=== PATIENT | female | born 1950 | race Caucasian/White ===

== ENCOUNTER → 2017-06-07 | Outpatient (CLI) | payer OTHER | END | disposition home or self-care (01) | LOC: PCVCCLINIC 12:00 | PROVIDERS: ATTEND Internal Medicine | DX: I10 Essential (primary) hypertension (principal); R93.1 Abnormal findings on diagnostic imaging of heart and coronary circulation; I51.7 Cardiomegaly; E78.5 Hyperlipidemia, unspecified; Z88.6 Allergy status to analgesic agent; Z79.82 Long term (current) use of aspirin; Z90.710 Acquired absence of both cervix and uterus | CPT/HCPCS: 80061; 93005; G0463 ==

== ENCOUNTER → 2017-07-10 | Outpatient (CLI) | payer OTHER | LOC: PCVCCLINIC 11:06 | PROVIDERS: ATTEND Internal Medicine | DX: I10 Essential (primary) hypertension (principal); R00.2 Palpitations; E78.5 Hyperlipidemia, unspecified; Z88.8 Allergy status to other drugs, medicaments and biological substances; Z79.82 Long term (current) use of aspirin; Z79.899 Other long term (current) drug therapy; Z90.710 Acquired absence of both cervix and uterus | CPT/HCPCS: G0463 ==

== ENCOUNTER → 2017-07-31 | Outpatient (CLI) | payer OTHER ==
[~2017-07-31] MED LIST: REGADENOSON 0.4 MG/5 ML DISP.SYRIN. IV ONE
--- NOTE | 2017-07-31 12:40 | PCVCIMAG ---
APPROVED REPORT Exam: Nuclear Stress Test Indication: Abn EKG, Palpitations, Afib Patient Location: Out Patient Stress Nurse: Sandy Ryan RN, PEDRO Kc Tech:Roger Frias NMTCB Ht: 5 ft 5 in Wt: 150 lbs BSA: 1.75 m2 HR: 86 bpm BP: 137/88 mmHg BMI: 24.9 Rhythm: NSR Medical History Medical History: Age, Hyperlipidemia, Afib, Medications: Toprol XL, Eliquis Allergies: ASA Pretest Chest Pain Characteristics: No chest pain Exercise History: Physically active Meds Held (24 hrs): Toprol XL NM EXAM: Myocardial Perfusion REST/STRESS Imaging Protocol: Rest Tc-99m/Stress Tc-99m 1 day Resting Data Rest SPECT myocardial perfusion imaging was performed in supine position 45 minutes following the intravenous injection of 8.8 mCi of Tc-99m Sestamibi. Time of rest injection: 804 Date: 07/31/2017 Pharmacologic Stress Pharmacologic stress test was performed by injecting Regadenoson 0.4 mg IV push followed by the intravenous injection of 25.8 mCi of Tc-99m Sestamibi. Time of stress injection: 924 Date: 07/31/2017 Gated Stress SPECT was performed 45 minutes after stress injection. The images were gated to evaluate regional wall motion and calculate left ventricular ejection fraction. Study Data Post stress, the left ventricular ejection was 68%.. SSS: 0 SRS: 2 SDS: 0 TID = 0.90. Perfusion There is a medium area of moderately reduced uptake in the apical segment of the anterior wall which is seen on the stress images as well as the resting images. This area thickens and moves normally and is most consistent with attenuation artifact. Wall Motion Normal left ventricular wall motion. Nuclear Conclusion 1. LOW RISK STUDY Interpreted by: Ivett Cates MD Electronically Approved: 07/31/2017 12:39:16 Stress Test Details Stress Test: Pharmacologic stress was paired with low level exercise. Reason for pharmacologic stress test: physical limitation. HR Resting HR: 86 bpmMax Heart Rate (APMHR): 153 bpm Max HR Achieved: 118 bpmTarget HR (85% APMHR): 130 bpm % of APMHR: 77 Recovery HR: 98 bpm BP Resting BP: 137/88 mmHg Max BP: 140/78 mmHg ECG Resting ECG: Sinus Rhythm Stress ECG: Sinus Tachycardia Recovery ECG: Sinus Rhythm Clinical Reason for Termination: Completed protocol Stress Symptoms: Nausea, Dyspnea, Headache Exercise duration: 4 min sec Exercise capacity: 1.6 METs Nurse Comments Symptoms resolved with rest Stress ECG Conclusion 1. ADEQUATE RESPONSE TO IV LEXISCAN 2. INADEQUATE HEART RATE FOR AN ECG DIAGNOSIS <Conclusion> 1. ADEQUATE RESPONSE TO IV LEXISCAN 2. INADEQUATE HEART RATE FOR AN ECG DIAGNOSIS
== END | disposition home or self-care (01) ==
LOC: PCVCIMAG 07:45
PROVIDERS: ATTEND Internal Medicine
DX: I48.91 Unspecified atrial fibrillation (principal); R00.2 Palpitations; K52.9 Noninfective gastroenteritis and colitis, unspecified; R94.31 Abnormal electrocardiogram [ECG] [EKG]
CPT/HCPCS: 78452; 93017; A9500; J2785

== ENCOUNTER → 2018-06-13 | Outpatient (CLI) | payer OTHER | END | disposition home or self-care (01) | LOC: PCVCCLINIC 12:54 | PROVIDERS: ATTEND Internal Medicine | DX: R00.2 Palpitations (principal); I10 Essential (primary) hypertension; E78.5 Hyperlipidemia, unspecified; I48.91 Unspecified atrial fibrillation; Z88.8 Allergy status to other drugs, medicaments and biological substances; Z79.899 Other long term (current) drug therapy | CPT/HCPCS: 80061; 93005; G0463 ==

== ENCOUNTER → 2019-06-19 | Outpatient (CLI) | payer OTHER | END | disposition home or self-care (01) | LOC: PCVCCLINIC 15:14 | PROVIDERS: ATTEND Internal Medicine | DX: I48.0 Paroxysmal atrial fibrillation (principal); I10 Essential (primary) hypertension; E78.5 Hyperlipidemia, unspecified; R00.2 Palpitations; Z88.6 Allergy status to analgesic agent; Z79.899 Other long term (current) drug therapy | CPT/HCPCS: 93005; G0463 ==

== ENCOUNTER → 2019-06-26 | Outpatient (CLI) | payer OTHER ==
--- NOTE | 2019-06-27 10:26 | PCVCIMAG ---
APPROVED REPORT Study performed: 06/26/2019 07:55:50 EXAM: Comprehensive 2D, Doppler, and color-flow Echocardiogram Patient Location: Echo lab Status: routine BSA: 1.68 HR: 71 bpmBP: 124/82 mmHg Rhythm: NSR Other Information Study Quality: Good Risk Factors: Cardiac Risk Factors: Hyperlipidemia, HTN Indications Atrial Fibrillation Palpitations 2D Dimensions IVSd: 10.95 (7-11mm)LVOT Diam: 19.00 (18-24mm) LVDd: 41.85 mm PWd: 11.58 (7-11mm)Ascending Ao: 32.76 (22-36mm) LVDs: 27.37 (25-40mm) Left Atrium: 32.55 (27-40mm) Aortic Root: 27.30 mm LV Single Plane 4CH: 54.26 % LV Single Plane 2CH: 56.35 % Biplane EF: 56.8 % Volumes Left Atrial Volume (Systole) Single Plane 4CH: 51.29 mLSingle Plane 2CH: 32.99 mL LA ESV Index: 25.00 mL/m2 Aortic Valve AoV Peak Nelson.: 1.37 m/s AO Peak Gr.: 7.56 mmHgLVOT Max P.51 mmHg LVOT Max V: 0.94 m/s NONA Vmax: 1.90 cm2 Mitral Valve E/A Ratio: 0.9 MV Decel. Time: 239.44 ms MV E Max Nelson.: 0.59 m/s MV A Nelson.: 0.68 m/s IVRT: 76.12 ms TDI E/Lateral E': 6.56E/Medial E': 7.38 Medial E' Nelson.: 0.08 m/s Lateral E' Nelson.: 0.09 m/s Pulmonary Valve PV Peak Nelson.: 0.89 m/sPV Peak Gr.: 3.19 mmHg Pulmonary Vein P Vein S: 0.55 m/sP Vein A: 0.35 m/s P Vein D: 0.51 m/sP Vein A Dur.: 117.6 msec P Vein S/D Ratio: 1.08 Tricuspid Valve TR Peak Nelson.: 2.55 m/sRAP Estimate: 7.00 mmHg TR Peak Gr.: 26.05 mmHg PA Pressure: 33.00 mmHg Left Ventricle The left ventricle is normal size. There is normal LV segmental wall motion. Borderline concentric left ventricular hypertrophy. Left ventricular systolic function is normal. The left ventricular ejection fraction is within the normal range. LVEF is 55-60%. Mild diastolic dysfunction is present (impaired relaxation pattern). Right Ventricle Right ventricle is mildly dilated. The right ventricular systolic function is normal. Atria The left atrium size is normal. Right atrium is dilated. Aortic Valve The aortic valve is normal in structure. No aortic regurgitation is present. There is no aortic valvular stenosis. Mitral Valve The mitral valve is normal in structure. Trace mitral regurgitation. No evidence of mitral valve stenosis. Tricuspid Valve The tricuspid valve is normal in structure. Mild tricuspid regurgitation. Pulmonary artery pressure is 33 mmHg. Pulmonic Valve The pulmonary valve is normal in structure. Mild pulmonic regurgitation. Great Vessels The aortic root is normal in size. The ascending aorta is normal in size. IVC is normal in size and collapses >50% with inspiration. Pericardium There is no pericardial effusion. <Conclusion> The left ventricle is normal size. LVEF is 55-60%. Right ventricle is mildly dilated. Right atrium is dilated. The mitral valve is normal in structure. Trace mitral regurgitation. The tricuspid valve is normal in structure. Mild tricuspid regurgitation. Pulmonary artery pressure is 33 mmHg. The pulmonary valve is normal in structure. Mild pulmonic regurgitation. There is no pericardial effusion.
== END | disposition home or self-care (01) ==
LOC: PCVCIMAG 07:39
PROVIDERS: ATTEND Internal Medicine
DX: I08.8 Other rheumatic multiple valve diseases (principal); R00.2 Palpitations; I48.91 Unspecified atrial fibrillation
CPT/HCPCS: 93306